=== PATIENT | female | born 1965 | race Caucasian/White ===

== ENCOUNTER 2018-03-19 03:29 | Observation (INO) | payer OTHER ==
[~2018-03-19] VITALS: Ht 152.4 cm; Wt 71.0 kg
[~2018-03-19 03:29] MED LIST: AMOXIL500 MG PO; ATORVASTATIN CA10 M1 PO; AZOR 5-40 MG T1 EACH PO; FLEXERIL10 MG PO; METOPROLOL TART25 M1 PO; PERCOCET 325 MG1 TA2 PO; PROBIOTIC1 EAC4 PO; SYNTHROID25 MCG PO
[2018-03-19] MEDS ORDERED: ALPRAZOLAM0.25 M1 PO (06:48)
[2018-03-19] MEDS ORDERED: IMODIUM A-1 MG/7.51 PO (06:49)
--- NOTE | 2018-03-19 10:08 | Operative Report ---
Operative/Inv Procedure Report Surgery Date: 03/19/18 Name of Procedure: c5/6, c6/7 acdf with 4webb interbody titanium cages, autograft, DBM, synthes vectra anterior plate and screws, fluoroscopy Pre-Operative Diagnosis: C5/6, C6/7 DDD, stenosis Post-Operative Diagnosis: same Estimated Blood Loss: scant Surgeon/Strapping Machine Operator: Zak LORA,Russell Lloyd MD Anesthesia: general endotracheal tube Monitors: neurophysologic monitoring IV Fluids: 1400cc crystalloid Implants: synthes vectra plate, 4webb cages Drains: small HV Specimens: C5/6, C6/7 disc Complications: none Condition: stable Operative Indication: 52yo women with intractable neck and arm pain and parasthesias with C5/6, C6/7 DDD and significant central and foraminal stenosis now presents for surgical decompression and fusion after failed conservative care. Operative/Procedure Note Note: Pt taken to the OR and after appropriate pt identification and surgical time out , the pt underwent smooth induction of GET without incident. With tube secured, neurosphysiologic monitoring leads, michael catheter and DVT prophylaxis placed. Baseline recordings obtained. Pt was positioned supine with neck gently extended on donut and shoulders retracted down. All pressure pts well padded and monitoring stable after positioning. Pt given preop 2g iv kefzol and decadron 10mg. C-arm brought in and correct levels localized. The neck then widely prepped and draped steriley and a transverse linear incision marked on left side in pre-existing crease and infiltrated with local. C-arm sterilely draped into the field. Skin incision made with 10 blade knife. Platysma identfied, undermined and divided with bovey and subplatysma planes developed. Medial sternocleidomastoid muscle identified, fascia incised, and dissection carried out with digital and sharp dissection medial to sternocleidomastoid and lateral to trachea and esophagus down to pervertebral fascia. Carotid sheath identified and protected laterally under handheld retracter. Prevertebral fascia reflected with a peanut and operative disc spaces localized with the c-arm and marked with bovey. Longus colli muscles were reflected bilaterally and self retaining retractors placed beneath the muscle. The endotracheal tube cuff was deflated and reinflated against the retractors to minimize trachael wall pressure. Annulotomy made at both C5/6 and C6/7 with 15 blade and superficial discectomy done with currettes and pituitary rongeurs. Kaspar retractors were placed and gently distraction placed across the interspaces. Discectomy was completed down to posterior longitudinal ligament which was elevated and sequentially resected at both levels. End plate osteophytes at canal thinned with drill and resected with 2 and 3mm kerrison punches and bone saved for fusion and an excellent decompression of dura and exiting roots accomplished at both levels. CSF pulsations were noted at both levels. Endplates at both levels were contoured and prepared for arthrodesis and all cartilaginous tissue removed. After appropriate trials, a 7mm 4webb titanium cage was filled with autograft from osteophytectomy and DBM and gently tamped into C5/6 and a second 7mm cage similarly into C6/7 and cages countersunk by 1-2mm under direct and fluroscopic guidance and position of the cages confirmed and noted to be excellent. Kaspar retracters removed and cages compressed between verterbral bodies. The ventral aspect of vertebral bodies then contoured with drill to facilitate the anterior plate placement. A 30mm 6 hole synthes vectra plate was selected and provisionally placed. Its position was confirmed and then afixed to vertebral bodies with a series of 2 screws into each of C5, C6, and C7. Each screw placed by piercing the bone with awl and placing self drilling self tapping screws with trajectory slightly medial. Once all screws in position, they were confirmed with C-arm and then finally tightened deploying the locking mechanism at each location. Final AP and lateral xrays obtained and saved. Monitoring was stable and wound closure started. Wound was copiously irrigated. Meticulous hemostasis obtained. A med HV was placed into the wound and secured to skin with 2-0 nylong suture. The platysma reapproximated with 3-0 vicryl suture. SKin closed in layers with 3-0 vicryl in dermis and 4-0 vicryl subcuticular to close skin. Wound was cleaned and dried and sterile occlusive dressing placed. Pt placed in soft collar, awakened, extubated and taken to PACU stable. Neurophysioloic monitoring stable. All sponge, needle and instrument counts correct X3 at completion of the case. Findings: spondylosis and stenosis both levels Discharge Disposition: PACU
--- NOTE | 2018-03-19 10:12 | Operative Report ---
Operative/Inv Procedure Report Surgery Date: 03/19/18 Name of Procedure: C5-C6 C6 7 anterior cervical discectomy and fusion use of 4 web intervertebral biomechanical device use of Synthes anterior plating Vectra system is autograft use of allograft use of fluoroscopic guidance Pre-Operative Diagnosis: Cervical spondylosis herniated nucleus pulposus radiculopathy Post-Operative Diagnosis: Same Estimated Blood Loss: less than 50ml Surgeon/Air Quality Engineer: Russell Crespo MD,Ana Giraldo Anesthesia: general endotracheal tube Operative/Procedure Note Note: After the successful administration of general endotracheal anesthesia all lines tubes and monitors were placed anesthesia team the patient positioned supine with the head gently extended her arms taped down to facilitate radiographic exposure of the anterior cervical spine. We used the fluoroscope to plan a skin incision the left anterior neck. Patient was then prepped and draped in the usual standard fashion a #15 blade was used to incise the left anterior neck after lidocaine with epinephrine was infiltrated in subcutaneous tissues. Dissection was deepened to the platysma with Bovie cautery and sharp dissection was carried down medial to the carotid sheath lateral to the trachea and esophagus. The deep cervical fascia was identified and cleared with the peanuts the levels confirmed by placing a bayoneted spinal needle into the C5 6 disc space and fluoroscopic shot was taken. The longus coli were then elevated bilaterally soft tissue retractors were inserted longus coli we entered the disc space and 15 blade performed total discectomy C6 accommodation pituitaries curettes and Kerrisons at C5 6 and C6 7. Anterior osteophytes were taken down using a Leksell rongeur as well as a Kerrison punch, the bone was saved for autograft. The high-speed drill was used to remove the bony cartilage endplates as well as to remove the posterior osteophytic lips. Can all bone was saved for autograft we provided generous foraminotomies using Kerrison punch high-speed drill of the bilateral lateral recesses at C5 6 and C6 7, the PLL was elevated with a upgoing curet and resected with a Kerrison punch. After satisfied with the bony ligamentous decompression bleeding was to minimum thecal sac was pulsatile we could visualize the shoulders of the nerves motors and sensors were stable. We then trialed and placed a 7 mm 4 web spacers prepacked with morselized autograft and D was bone matrix putty. Of note Baker pins were inserted in the bodies of C5 and C7 the decompression providing line distraction. After the grafts were placed the Baker pins removed the holes waxed with bone wax motors and sensors were still stable. We then trialed a 30 mm plate secured in place with a holding pin used the awl and placed 16 mm screws, there were locked down with the intrinsic locking mechanism the holding pin was removed and the final screw was placed. The hardware was placed under fluoroscopic guidance. The retractors removed meticulous hemostasis obtained for many bleeding bone and muscle edges. Through separate stab incision a MARIVEL drain was left the wound was then closed in layers with 3-0 Vicryl for the platysmal and deep dermis and skin was closed with a 4.0 subcutaneous, Monocryl a dry sterile dressing was applied and the case all needle counts sponge and is was correct.
[2018-03-19 12:13] VITALS: BP 138/84
--- NOTE | 2018-03-19 12:53 | Admission Core Measures ---
Acute Coronary Syndrome (CM) ACS Core Measures Acute Coronary Syndrome Diagnosis No Congestive Heart Failure (NEW) CHF Core Measures Congestive Heart Failure Diagnosis No Cerebrovascular Accident CVA Core Measures CVA/TIA Diagnosis No Venous Thromboembolism VTE Core Iva (View Protocol) VTE Risk Factors Surgery No Mechanical VTE Prophylaxis d/t N/A MechProphylax Ordered No VTE Pharm Prophylaxis d/t NA PharmProphylax ordered Problem List As ranked by this Provider includes Assessment & Plan 1. Spinal stenosis, cervical region HOME MEDS Home Med List Alprazolam 0.25 MG TABLET 1 TAB PO BIDP PRN anxiety (Reported) Amlodipine Bes/Olmesartan Med (Jing 5-40 MG Tablet) 5 MG-40 MG TABLET 1 TAB PO DAILY BP (Reported) Atorvastatin Calcium 10 MG TABLET 1 TAB PO DAILY CHOLESTEROL (Reported) L.acidoph,Paracasei, B.lactis (Probiotic) (Unknown Strength) CAPSULE (Unknown Dose) PO DAILY PROBIOTIC (Reported) Levothyroxine Sodium (Synthroid) 25 MCG TABLET 1 TAB PO DAILY THYROID ( Reported) Metoprolol Tartrate 25 MG TABLET 0.5 TAB PO DAILY HEART/BP (Reported)
--- NOTE | 2018-03-19 12:54 | RADIOLOGY REPORT ---
EXAMINATION: XR CERVICAL SPINE CLINICAL INFORMATION: Cervical discectomy fusion C5-C7 COMPARISON: MRI cervical spine, 03/17/2018 TECHNIQUE: Intraoperative fluoroscopic imaging of cervical spine. Number of saved images: 4. Fluoroscopy time: 10 seconds. Dose: 36.22 mrad. FINDINGS: Initial lateral image shows needle positioned anterior to C6. Patient is intubated within the operating room. Subsequent fluoroscopic images were obtained after discectomy and anterior fusion at C5-C6 and C6-C7. The hardware is in satisfactory position. Cervical alignment is anatomic. IMPRESSION: Intraoperative fluoroscopic guidance required for discectomy and fusion at C5-C7.
--- NOTE | 2018-03-19 13:03 | Patient Discharge Instructions ---
Discharge Instructions General Discharge Information You were seen/treated for: Neck pain related to C5-C7 degenerative disc disease and spinal stenosis You had these procedures: ACDF C5-7 Watch for these problems: Increasing pain despite the use of pain medication Increasing redness and swelling Drainage of any type from incision Inability to swallow or speak Inability to urinate or move bowels Do not soak the wound: Yes No bath, but you may shower: Yes Other wound care: Keep wound clean and dry Special Instructions: - pain medications as needed - cover incision for showers occlusively - no driving, no lifting more than 5lbs - wear collar as needed Diet Continue normal diet: Yes Recommended Diet: Regular Additional DIET Information: Start soft and advance diet texture as tolerated Activity Full Activity/No Limits: No Activity Self Limited: Yes Pounds, do NOT lift more than: 5 Acute Coronary Syndrome Inclusion Criteria At DC or during hospital stay patient has or had the following: ACS DIAGNOSIS No Discharge Core Measures Meds if any: Prescribed or Continued at Discharge Meds if any: NOT Prescribed or Continued at Discharge Congestive Heart Failure Inclusion Criteria At DC or during hospital stay patient has or had the following: CHF DIAGNOSIS No Discharge Core Measures Meds if any: Prescribed or Continued at Discharge Meds if any: NOT Prescribed or Continued at Discharge Cerebrovascular accident Inclusion Criteria At DC or during hospital stay patient has or had the following: CVA/TIA Diagnosis No Discharge Core Measures Meds if any: Prescribed or Continued at Discharge Meds if any: NOT Prescribed or Continued at Discharge Venous thromboembolism Inclusion Criteria VTE Diagnosis No VTE Type NONE VTE Confirmed by (Test) NONE Discharge Core Measures - Per Current guidelines, there needs to be overlap - treatment for the first 5 days of Warfarin therapy. - If discharged on Warfarin prior to 5 days of - overlap therapy, the patient will need to be - assessed for post discharge needs including - *Post discharge parental anticoagulation - *Warfarin and/or parental anticoagulation education - *Follow up date to check INR post discharge At least 5 days overlap therapy as Inpatient No Meds if any: Prescribed or Continued at Discharge Note: Overlap Therapy is Warfarin and Anticoagulant Meds if any: NOT Prescribed or Continued at Discharge
--- NOTE | 2018-03-19 13:07 | Surgical Discharge Summary ---
Visit Information Visit Dates Admission Date: 03/19/18 Discharge Date: 03/20/18 History of Present Illness Chief Complaint: Neck pain related to spinal stenosis, cervical region Medical History Blood Transfusion Hx: No Neurological: NONE EENT: allergies Cardiovascular: hypertension, hyperlipidemia Respiratory: NONE Gastrointestinal: GERD, irritable bowel syndrome Hepatic: NONE Renal: NONE Musculoskeletal: chronic back pain Psychiatric: anxiety Endocrine: hypothyroidism Blood Disorders: NONE Cancer(s): NONE DENTAL HYGIENIST MOBILE COORDINATOR/Reproductive: NONE Isolation History: Standard Surgical History Pertinent Surgical History: non-contributory Psychosocial History Where Do You Live? Home Who Do You Live With? Significant Other What is Your Primary Language? Vietnamese Review of Systems: See H&P Hospital Course Course Attending Physician: Zak LORA,Ana Giraldo Primary Care Physician: Be LORA,[place] Hospital Course: Swathi underwent an elective ACDF at levels C5-7 for neck pain related to degenerative disc disease and spinal stenosis. She tolerated the procedure well and was transferred to a general surgical floor. Her diet was advanced and tolerated. Her vital signs were stable and within normal limits. Her pain was controlled. She was deemed appropriate for discharge. Allergies: Coded Allergies: melon (CANTOLOUPE - TONGUE SWELLING AND NUMBNESS IN FACE 03/16/18) Disposition Summary Disposition Principal Diagnosis: DDD, spinal stenosis C5-7 Additional Diagnosis: None Discharge Disposition: home or self care Discharge Instructions General Discharge Information Code Status: Full Code Patient's Diet: Regular, advance as tolerated Patient's Activity: As tolerated, collar Follow-Up Instructions/Appts: Follow up with Dr. Crespo in two weeks from date of surgery. Please call office to arrange/confirm this appointment. Medications at Discharge Discharge Medications: Continue taking these medications: Atorvastatin Calcium (Atorvastatin Calcium) 10 MG TABLET 1 Tablet ORAL DAILY Amlodipine Bes/Olmesartan Med (Jing 5-40 MG Tablet) 5 MG-40 MG TABLET 1 Tablet ORAL DAILY Metoprolol Tartrate (Metoprolol Tartrate) 25 MG TABLET 0.5 Tablet ORAL DAILY Levothyroxine Sodium (Synthroid) 25 MCG TABLET 1 Tablet ORAL DAILY L.acidoph,Paracasei, B.lactis (Probiotic) (Unknown Strength) CAPSULE Unknown Dose ORAL DAILY Alprazolam (Alprazolam) 0.25 MG TABLET 1 Tablet ORAL 2 x Daily as needed as needed for anxiety Loperamide HCl (Imodium A-D) 1 MG/7.5 ML LIQUID ORAL NEEDED Start taking the following new medications: Oxycodone HCl/Acetaminophen (Percocet 5-325 MG Tablet) 5 MG-325 MG TABLET 1-2 Tablet ORAL EVERY 4 HOURS NEEDED as needed for postop pain Qty = 30 No Refills Methocarbamol (Robaxin) 500 MG TABLET 1 Tablet ORAL THREE TIMES DAILY as needed for MUSCLE SPASM Qty = 9 No Refills
[2018-03-19 14:43] VITALS: BP 126/80
--- NOTE | 2018-03-19 16:03 | PN- Neurosurgical ---
Subjective Subjective: Post op check: No acute post operative events. Pain controlled with po pain medications at present. Denies chest pain, shortness of breath and difficulty breathing. Denies nausea and vomitting. Is able to swallow without difficulty, denies difficulty speaking. Has been oob to void. Objective Vital Signs and I&Os Vital Signs Date Time Temp Pulse Resp B/P B/P Pulse O2 O2 Flow FiO2 Mean Ox Delivery Rate 03/19 1443 97.9 67 20 126/80 93 03/19 1213 98.2 68 16 138/84 93 Room Air Intake & Output 03/19 1600 03/19 0800 03/19 0000 03/18 1600 03/18 0800 03/18 0000 Intake Total 660 Output Total 20 Balance 640 Intake, IV 160 Intake, Oral 500 Output, 20 Drainage Patient 143 lb Weight Weight Reported by Patient Measurement Method Physical Exam: General: Alert and oriented x3, no acute distress Cardiac: RRR, s1s2 Pulm: CTA bilaterally, nonlabored respiratory effort Abd: Non-tender, non-distended Extremities: Moves all extremities, distal sensation intact. Upper extremities bilaterally without gross motor or sensory deficits. Skin warm and well perfused. DP pulses palpable. Bilateral calves soft and non-tender. Surgical site: Neck. Dressing with small amout of stain, no breakthrough. PARAS holding suction, small amount of sanguinous output. Soft collar in place. Assessment/Plan Assessment/Plan This is a 52 year old female, POD 0, s/p ACDF c5-7. pmh sig for htn, hld, anxiety, hypothyroid. -Soft collar at all times -Mechanical soft regular diet -OOB -Incentive spirometer -Continue paras drain, ancef for abx ppx while drain in place -Hep sub q for pharm dvt ppx, alps for mechanical -Percocet for pain control -Anticipate dc drain tomorrow, only if output 15 cc or less per 8 hr shift, dc home when drain out Will discuss plan of care with Dr. Crespo Core Measures Venous Thromboembolism VTE Risk Factors Surgery No Mechanical VTE Prophylaxis d/t N/A MechProphylax Ordered No VTE Pharm Prophylaxis d/t NA PharmProphylax ordered
[2018-03-19 16:41] VITALS: BP 124/86
[2018-03-19 21:56] VITALS: BP 132/86
[2018-03-20] VITALS: BP 130/80
[2018-03-20 04:10] VITALS: BP 120/80
--- NOTE | 2018-03-20 07:46 | PN- Neurosurgical ---
Subjective Subjective: Pt doing well. min dysphagia. Objective Vital Signs and I&Os Vital Signs Date Time Temp Pulse Resp B/P B/P Pulse O2 O2 Flow FiO2 Mean Ox Delivery Rate 03/20 0410 98.2 64 20 120/80 96 Room Air 03/20 0000 98.6 63 20 130/80 94 Room Air 03/19 2156 97.9 77 16 132/86 94 Room Air 03/19 1647 Room Air Room Air 03/19 1641 98.6 73 16 124/86 94 Room Air 03/19 1443 97.9 67 20 126/80 93 / 1213 98.2 68 16 138/84 93 Room Air Intake & Output 03/20 0803/20 0000 03/19 1600 03/19 0803/19 0000 03/18 1600 Intake Total 175 100 660 Output Total 20 Balance 175 100 640 Intake, IV 75 160 Intake, Oral 100 100 500 Output, 20 Drainage Patient 70.959 kg 64.864 kg Weight Weight Reported by Patient Measurement Method Physical Exam: AF, VSS awake and alert voice clear, no hoarseness swallow intact, robyn po MARIVEL with 20cc yest, min in bulb this am neck soft, NT normal neuro exam bilat UE, LE ambulating using IS to less than 2L voiding on own Current Medications: Current Medications Sig/Brian Start time Last Medication Dose Route Stop Time Status Admin Acetaminophen 650 MG Q4P PRN 03/19 1053 AC PO Alprazolam 0.25 MG BID PRN 03/19 1245 AC PO 03/26 1244 Amlodipine Besylate 5 MG DAILY 03/20 09 AC PO Atorvastatin Calcium 10 MG 1700 03/19 1700 AC 03/19 PO 1612 Bisacodyl 10 MG DAILY NEEDED PRN 03/19 1053 AC RI Cefazolin Sodium 2 GM IQ8 03/19 1600 AC 03/19 N/A 1 UNIT IV 03/21 08 2335 Cefazolin Sodium 2,000 MG ONCE 03/19 0000 DC IV 03/19 2359 Diazepam 5 MG Q8P PRN 03/19 1053 AC PO Docusate Sodium 100 MG BID 03/19 2100 AC 03/19 PO 2139 Heparin Sodium 5,000 UNIT Q8 03/20 0600 AC 03/20 (Porcine) SC 0559 Hydromorphone HCl 1 MG Q4-6 PRN PRN 03/19 1053 AC IV Hydromorphone HCl 2 MG Q4-6 PRN PRN 03/19 1053 DC IV Levothyroxine Sodium 0.025 MG DAILY AC 03/20 07 AC 03/20 PO 0559 Losartan Potassium 100 MG DAILY 03/20 900 AC PO Metoprolol Tartrate 12.5 MG DAILY 03/20 900 AC PO Ondansetron HCl 4 MG Q6P PRN 03/19 1053 AC IV Oxycodone/ 1 TAB Q4P PRN 03/19 1053 AC Acetaminophen PO Oxycodone/ 2 TAB Q4P PRN 03/19 1053 AC 03/20 [place]etamin[place] PO 0601 Sodium Chloride 1,000 ML Q12H 03/19 1053 DC 03/19 IV 03/20 1052 1227 Trimethobenzamide HCl 200 MG Q6P PRN 03/19 1053 AC IM Zolpidem Tartrate 2.5 MG AT BEDTIME NEED.. 03/19 1053 AC PO Assessment/Plan Assessment/Plan Pt POD1 s/p C5/6, C6/7 ACDF and doing well. Neuro stable. Plan: -dc MARIVEL -home later this am -robaxin and vicoden prn for dc -fu with me 2 wks -cover incision for showers occlusively -no driving, no lift more than 5lbs, mech soft diet -collar prn Core Measures Venous Thromboembolism VTE Risk Factors Surgery No Mechanical VTE Prophylaxis d/t N/A MechProphylax Ordered No VTE Pharm Prophylaxis d/t NA PharmProphylax ordered Attending MD Review Statement Attending Statement Attending MD Statement: examined this patient, discuss w/resident/PA/SAUSAGE MAKER
[2018-03-20] MEDS ORDERED: ROBAXIN500 M1 PO (08:34)
[2018-03-20] MEDS ORDERED: PERCOCET 5-3251 EACH PO (08:34)
[2018-03-20 09:14] VITALS: BP 120/80
== END 2018-03-20 10:43 ==
LOC: STS 03:29 → PACUH 10:25 → ENRESERV 10:55 → ENTRNSPT 11:27 → EDTRNSPTSTS 11:44 → EDTRNSPT 11:44 → 2NA 11:53 → CMPTRNSPT 12:21 → ENPENDDIS 03-20 10:34 → 2NA 03-20 10:43
DX: M47.892 Other spondylosis, cervical region (principal); M50.123 Cervical disc disorder at C6-C7 level with radiculopathy
CPT/HCPCS: 1255; 6030; 36415; 72040; 88304; 96372; 96374; C1713; G0378; J0690; J1644; J2405; J3250; J3370; J3490